=== PATIENT | female | born 1995 | race Caucasian/White ===

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

== ENCOUNTER 2017-01-23 17:32 | Emergency (ER) | payer MEDICAID ==
[~2017-01-23] VITALS: Wt 57.3 kg
[~2017-01-23 17:32] MED LIST changes: +ACET500C5 PO; +AZIT250T94 PO
--- NOTE | 2017-01-23 20:50 | ERD ---
ER Documentation Chief Complaint Chief Complaint RIGHT EAR PAIN, CONGESTION, FEVER AT HOME HPI 22-year-old female, previously healthy, presents to the emergency department complaining of 5 days with progressive right ear pain associated with congestion , sore throat and subjective fever. The pain is described as sharp, constant, 8 /10 radiating to the neck. Denies headaches, chills, rashes. No nausea, no vomiting, no diarrhea. No treatment attempted at this time. History provided by patient ROS SYSTEMIC symptoms: + fever, chills, no night sweats, no weight loss EYE symptoms: No blurred vision, no eye discharge OTOLARYNGEAL symptoms: No hearing loss. + ear pain, no sore throat CARDIOVASCULAR symptoms: No chest pain or discomfort, no palpitations. PULMONARY symptoms: No dyspnea, no cough, no wheezing. GASTROINTESTINAL symptoms: No abdominal pain, no nausea, no vomiting, no diarrhea MUSCULOSKELETAL symptoms: No arthralgias, no muscle aches. NEUROLOGY symptoms: No confusion, no syncope, no numbness or tingling. SKIN: No rashes Medications Home Meds Active Scripts Ibuprofen* (Motrin*) 600 Mg Tab, 600 MG PO Q8, #30 TAB Prov:CARLIE ARGUELLO MD 01/23/17 Azithromycin* (Zithromax*) 250 Mg Tablet, 250 MG PO .ZPACK DIRECTED, #6 TAB TAKE 500 MG (2 TABS) THE FIRST DAY THEN 250 MG (1 TAB) DAYS 2-5 Prov:CARLIE ARGUELLO MD 01/23/17 Allergies Allergies: Coded Allergies: No Known Allergy (Unverified , 01/23/17) PMhx/Soc Medical and Surgical Hx: pt denies Medical Hx, pt denies Surgical Hx History of Surgery: No Anesthesia Reaction: No Hx Neurological Disorder: No Hx Respiratory Disorders: No Hx Cardiac Disorders: No Hx Psychiatric Problems: No Hx Miscellaneous Medical Probl: No Hx Alcohol Use: No Hx Substance Use: No Hx Tobacco Use: No Smoking Status: Never smoker Physical Exam Vitals Vital Signs Date Time Temp Pulse Resp B/P Pulse Ox O2 Delivery O2 Flow Rate FiO2 01/23/17 17:39 98.4 91 17 124/70 98 Physical Exam Patient is in no acute distress, vital signs stable. Alert and fully oriented. EYES: PERRLA, EOMI, Sclera and conjunctiva appear normal. EARS: Right ear: Erythematous canal, tympanic membrane retracted, with erythema , opaque. Contralateral ear normal THROAT: Erythematous oropharynx. NECK: Supple, No lymphadenopathy. Full ROM without pain or tenderness. HEART: RRR, no rubs, murmurs, clicks or gallops. LUNGS: Clear to auscultation. ABDOMEN: Soft, non-tender without masses or hepatosplenomegaly. EXTREMITIES: No edema bilaterally. BACK: Full ROM, no deformity, normal back exam NEURO: Cranial nerves grossly intact, no motor or sensory deficit Procedures/MDM 22-year-old female, previously healthy, presents to the emergency department complaining of right ear pain for 5 days. Vital signs stable, Physical exam revealed a right ear with erythematous canal, tympanic membrane retracted, erythematous, opaque. Differential diagnosis include but not limited to: Infectious otitis, eustachian dysfunction, barotrauma, cholesteatoma, foreign body. Low suspicion for malignant otitis or mastoiditis. Physical examination and clinical presentation consistent most likely with right acute otitis media. During the ED course the patient remained stable, no new complaints. Results and clinical impression discussed with patient who agrees with management. The patient is stable to be treated outpatient and will be discharged home with a Rx for azithromycin and ibuprofen, some side effects of prescribed medications (headache, rash, nausea, vomiting, diarrhea, drowsiness, habituation, bleeding, hypertension, interactions with other medications) were reviewed. The patient was instructed to follow up with the primary care provider in the next 48h. If symptoms persist, worsen or new symptoms develop, then patient should return to the ED immediately. Instructions explained and given directly by me to the patient in [place] with acknowledgment and demonstrated understanding. Disclaimer: Inadvertent spelling and grammatical errors are likely due to EHR/ dictation software use and do not reflect on the overall quality of patient care. Also, please note that the electronic time recorded on this note does not necessarily reflect the actual time of the patient encounter. Departure Diagnosis: Primary Impression: Right otitis media Condition: Stable Additional Instructions: Call your primary care doctor TOMORROW for an appointment during the next 1-2 days. See the doctor sooner or return here if your condition worsens before your appointment time. Thank you very much for allowing us to participate in your care. Your health and safety is our top priority at [facility]. Have prescriptions filled and follow precisely the directions on the label. Follow-up with primary care provider during the next 4 days and bring all the information and medications prescribed. If illness has not improved in 2 days, then make an appointment with primary care provider. If the provider is unavailable, return to the Emergency Department immediately. CARLIE ARGUELLO MD Jan 23, 2017 20:50
[2017-01-23] MEDS ORDERED: AZIT250T94 PO (20:51)
[2017-01-23] MEDS ORDERED: IBUP-1542 PO (20:51)
[2017-01-23 21:01] VITALS: BP 123/74; PULSE 90; RESP 17; TEMP 98.5
== END 2017-01-23 21:03 | disposition home or self-care (01) ==
LOC: MERGE 17:32 → FTE 17:32
DX: H66.91 Otitis media, unspecified, right ear (principal)
CPT/HCPCS: 99283